=== PATIENT | female | born 2000 | race Caucasian/White ===

== ENCOUNTER 2022-08-08 08:08 | Emergency (ER) | payer OTHER ==
[~2022-08-08] VITALS: Ht 167.6 cm; Wt 75.0 kg
[2022-08-08] MEDS ORDERED: TESSALON PERLE100 MG PO (09:21)
[2022-08-08] MEDS ORDERED: MOTRIN800 MG PO (09:21)
[2022-08-08] MEDS ORDERED: TAM75CAP PO (09:21)
[2022-08-08 09:28] VITALS: BP 130/74
== END 2022-08-08 09:29 | disposition home or self-care (01) ==
LOC: ED 08:08
DX: J10.1 Influenza due to other identified influenza virus with other respiratory manifestations (principal); Z20.822 Contact with and (suspected) exposure to COVID-19